=== PATIENT | female | born 1945 | race Caucasian/White ===

== ENCOUNTER 2017-03-15 08:30 | Outpatient (CLI) | payer MEDICARE, BC | END 2017-03-15 08:31 | disposition home or self-care (01) | DRG 552 | LOC: CONVCARE 08:30 | PROVIDERS: ATTEND Orthopaedic Surgery | DX: M48.06 Spinal stenosis, lumbar region (principal); M48.07 Spinal stenosis, lumbosacral region | CPT/HCPCS: 72120; 73502 ==

== ENCOUNTER 2017-04-02 10:39 | Day surgery (SDC) | payer MEDICARE, BC ==
[2017-04-02 11:11] VITALS: RESP 16
[2017-04-02] MEDS ORDERED: DEXAMETHASONE SOD PHOS PF 10 MG/ML SOL IJ ONE (11:37)
[2017-04-02] MEDS ORDERED: LIDOCAINE HCL 1% MPF SOL ONE (11:44)
[2017-04-02 12:25] VITALS: PULSE 70; TEMP 98.2; O2SAT 97
[2017-04-02 12:34] VITALS: BP 175/90
== END 2017-04-02 12:40 | disposition home or self-care (01) | DRG 552 ==
LOC: SURG 10:39
PROVIDERS: ATTEND Nurse Anesthetist, Certified Registered
DX: M48.06 Spinal stenosis, lumbar region (principal)
CPT/HCPCS: J1100; J2001

== ENCOUNTER 2017-04-30 06:44 | Day surgery (SDC) | payer MEDICARE, BC ==
[2017-04-30] MEDS ORDERED: ACETAMINOPHEN 325 MG ONE (06:48)
[2017-04-30] MEDS ORDERED: LIDOCAINE HCL 1% MPF SOL ONE (07:04)
[2017-04-30] MEDS ORDERED: POVIDONE IODINE 5% SOL ONE (07:04)
[2017-04-30] MEDS ORDERED: TRYPAN BLUE 0.5 ML SOL IO ONE (07:04)
[2017-04-30] MEDS ORDERED: BSS W/ 0.25MG P.F. EPI 1 BOTTLE ONE (07:04)
[2017-04-30 07:06] VITALS: RESP 18
[2017-04-30] MEDS: PROPARACAINE HCL 0.5% OPHTHALMIC SOL ONE ×3 (07:21→08:34)
[2017-04-30] MEDS: CYCLOPENTOLATE 1% SOL ONE ×2 (07:21→07:33)
[2017-04-30] MEDS: PHENYLEPHRINE HCL 10% OPHTHAL SOL ONE ×2 (07:21→07:33)
[2017-04-30] MEDS ORDERED: ACETAZOLAMIDE 500 MG CER ONE (07:41)
[2017-04-30] MEDS ORDERED: MIDAZOLAM 2 MG/2 ML SOL ONE (07:42)
[2017-04-30] MEDS ORDERED: FENTANYL 100MCG/2ML SOL ONE (09:05)
[2017-04-30 09:35] VITALS: BP 150/92; PULSE 77; TEMP 96.7; O2SAT 99
== END 2017-04-30 09:48 | disposition home or self-care (01) | DRG 125 ==
LOC: SURG 06:44
PROVIDERS: ATTEND Ophthalmology
DX: H25.9 Unspecified age-related cataract (principal); H21.81 Floppy iris syndrome
CPT/HCPCS: J2250; J3010; J2001

== ENCOUNTER 2017-07-08 07:13 | Emergency (ER) | payer MEDICARE, BC ==
[2017-07-08] MEDS ORDERED: ALUMINUM/MAGNESIUM 30 ML SUS PO ONE (07:20)
[2017-07-08] MEDS ORDERED: LIDOCAINE HCL 2% (VISCOUS) 20 ML SOL MT ONE (07:20)
[2017-07-08] MEDS ORDERED: LIDOCAINE HCL 2% (VISCOUS) 20 ML SOL ONE (07:29)
[2017-07-08] MEDS ORDERED: ALUMINUM/MAGNESIUM 30 ML SUS ONE (07:29)
[2017-07-08 07:51] VITALS: RESP 20
[2017-07-08 09:09] VITALS: BP 149/79; PULSE 67; TEMP 97.4; O2SAT 97
== END 2017-07-08 09:40 | disposition home or self-care (01) | DRG 392 ==
LOC: ED 07:13
DX: K21.9 Gastro-esophageal reflux disease without esophagitis (principal); K80.50 Calculus of bile duct without cholangitis or cholecystitis without obstruction
CPT/HCPCS: 99283

== ENCOUNTER 2017-07-18 04:15 | Emergency (ER) | payer MEDICARE, BC ==
[2017-07-18] MEDS ORDERED: HYDROMORPHONE 1 MG/ML SYRINGE IV ONE ×3 (04:24→07:35)
[2017-07-18] MEDS ORDERED: ONDANSETRON HCL 4 MG/2 ML SOL IV ONE (04:25)
[2017-07-18] MEDS ORDERED: SODIUM CHLORIDE 0.9% 1000 ML SOL IV ONE (04:26)
[2017-07-18] MEDS ORDERED: ONDANSETRON HCL 4 MG/2 ML SOL ONE (04:29)
[2017-07-18] MEDS ORDERED: HYDROMORPHONE 1 MG/ML SYRINGE ONE ×3 (04:29→07:35)
[2017-07-18 04:55] LABS: HEMATOCRIT 40 % (35-47); MEAN CORPUSCULAR HGB CONC 34.3 gm/dl (32.0-36.0); MEAN CORPUSCULAR VOLUME 92 fL (81-99)
[2017-07-18 05:05] LABS: ALBUMIN 3.2 gm/dl (3.4-5.0); CALCIUM 8.3 mg/dl (8.5-10.1); POTASSIUM 4.2 mMol/L (3.5-5.1)
[2017-07-18] MEDS ORDERED: ALUMINUM/MAGNESIUM 30 ML SUS PO ONE (05:09)
[2017-07-18] MEDS ORDERED: LIDOCAINE HCL 2% (VISCOUS) 20 ML SOL MT ONE (05:09)
[2017-07-18] MEDS ORDERED: ALUMINUM/MAGNESIUM 30 ML SUS ONE (05:10)
[2017-07-18] MEDS ORDERED: LIDOCAINE HCL 2% (VISCOUS) 20 ML SOL ONE (05:10)
[2017-07-18 05:19] LABS: BASOPHILS % (MANUAL) 0 % (0-3); EOSINOPHILS % (MANUAL) 2 % (0-9); LYMPHOCYTES % (MANUAL) 10 % (10-50); NORMAL RBCS PRESENT
[2017-07-18 07:08] LABS: APPEARANCE,URINE Clear; BILIRUBIN,URINE 1+ (NEGATIVE); COLOR,URINE Yellow; GLUCOSE, URINE (UA) NEGATIVE (NEGATIVE); KETONES,URINE NEGATIVE (NEGATIVE); LEUKOCYTE ESTERASE ,URINE NEGATIVE (NEGATIVE); NITRATE,URINE NEGATIVE (NEGATIVE); OCCULT BLOOD,URINE NEGATIVE (NEG-TRACE); UROBILINOGEN,URINE 0.2 (0.2-1.0 EU)
[2017-07-18 07:25] LABS: ICTOTEST,URINE POSITIVE (NEGATIVE); RBC,URINE 0-2 (0-3AV/HPF); WBC,URINE 0-2 (0-5AV/HPF)
[2017-07-18 07:54] VITALS: BP 112/58; PULSE 115; RESP 16; TEMP 100.1; O2SAT 98
== END 2017-07-18 07:47 | disposition short-term general hospital (02) | DRG 446 ==
LOC: ED 04:15
DX: K80.42 Calculus of bile duct with acute cholecystitis without obstruction (principal); R10.11 Right upper quadrant pain
CPT/HCPCS: 36415; 74177; 80053; 81001; 85007; 85027; 85610; 99285; J2405; Q9967; J1170

== ENCOUNTER 2017-08-26 23:28 | Observation (INO) | payer MEDICARE, BC ==
[2017-08-26] MEDS ORDERED: DILTIAZEM 5 MG/ML SOL IV ONE ×2 (23:49→23:52)
[2017-08-26] MEDS: SODIUM CHLORIDE 0.9% FLUSH 10 ML SOL IV PRN (23:57)
[2017-08-27 00:07] LABS: BASOPHILS % (AUTO) 2 % (0-3); EOSINOPHILS % (AUTO) 7 % (0-9); HEMATOCRIT 40 % (35-47); MEAN CORPUSCULAR HGB CONC 35.4 gm/dl (32.0-36.0); MEAN CORPUSCULAR VOLUME 90 fL (81-99); MONOCYTES % (AUTO) 10.3 % (0-12)
[2017-08-27 00:17] LABS: GLOM FILT RATE 62 mL/min (>60); SODIUM 141 mMol/L (136-145)
[2017-08-27] MEDS ORDERED: ALBUTEROL HFA 60 PUFF/INHALER INH PRN (01:04)
[2017-08-27] MEDS ORDERED: DILTIAZEM HYDROCHLORIDE 60 MG TAB PO ONE (01:25)
[2017-08-27] MEDS ORDERED: DILTIAZEM ER 120 MG C24 PO ONE (02:13)
[2017-08-27] MEDS ORDERED: DILTIAZEM HYDROCHLORIDE 60 MG TAB PO SCH (07:00)
[2017-08-27] MEDS ORDERED: D3 PO SCH (09:00)
[2017-08-27] MEDS ORDERED: [UNRECOGNIZED DRUG - OTHER] PO SCH (09:00)
[2017-08-27] MEDS ORDERED: VIT K1 PO SCH (09:00)
[2017-08-27] MEDS ORDERED: OMEPRAZOLE 20 MG CAPSULE PO SCH (09:00)
[2017-08-27] MEDS ORDERED: VITAMIN E PO SCH (09:00)
[2017-08-27] MEDS ORDERED: CYANOCOBALAMIN PO SCH (09:00)
[2017-08-27] MEDS ORDERED: VITAMIN D3 PO SCH (09:00)
[2017-08-27] MEDS ORDERED: [UNRECOGNIZED DRUG - OTHER] PO SCH (09:00)
[2017-08-27] MEDS ORDERED: CALCIUM CARB PO SCH (09:00)
[2017-08-27] MEDS ORDERED: GLUCOSAMINE PO SCH (09:00)
[2017-08-27] MEDS ORDERED: VITAMIN B COMPLEX VIT C NO 4 PO SCH (09:00)
[2017-08-27] MEDS ORDERED: BOSWELLIA SERRA PO SCH (09:00)
[2017-08-27] MEDS ORDERED: [UNRECOGNIZED DRUG - OTHER] PO SCH (09:00)
[2017-08-27] MEDS ORDERED: ASCORBIC ACID 500 MG TAB PO SCH (09:00)
[2017-08-27] MEDS: PANTOPRAZOLE SODIUM 40 MG ECT PO SCH ×2 (10:26→20:49)
[2017-08-27] MEDS: ACETAMINOPHEN 325 MG PO SCH ×2 (10:27→20:50)
[2017-08-27] MEDS: DICLOFENAC SODIUM 100 MG PO SCH (13:14)
[2017-08-27] MEDS ORDERED: CARBIDOPA PO SCH (21:00)
[2017-08-27] MEDS ORDERED: LEVODOPA PO SCH (21:00)
[2017-08-27] MEDS ORDERED: POTASSIUM PO SCH (21:00)
[2017-08-27] MEDS ORDERED: EVENING PRIMROSE OIL PO SCH (21:00)
[2017-08-27] MEDS ORDERED: ENTACAPONE PO SCH (21:00)
[2017-08-27] MEDS ORDERED: MAGNESIUM OXIDE 400 MG TAB PO SCH (21:00)
[2017-08-27] MEDS ORDERED: LUTEIN 20 MG PO SCH (21:00)
[2017-08-27] MEDS ORDERED: [UNRECOGNIZED DRUG - OTHER] PO SCH (21:00)
[2017-08-27] MEDS ORDERED: PRAVASTATIN SODIUM 20 MG TAB PO SCH (21:00)
[2017-08-28] MEDS: SODIUM CHLORIDE 0.9% FLUSH 10 ML SOL IV PRN (00:45)
[2017-08-28 08:09] VITALS: BP 153/97; PULSE 82; RESP 16; TEMP 97.8; O2SAT 95
[2017-08-28] MEDS: PANTOPRAZOLE SODIUM 40 MG ECT PO SCH (09:40)
[2017-08-28] MEDS: ACETAMINOPHEN 325 MG PO SCH (09:40)
[2017-08-28] MEDS: DICLOFENAC SODIUM 100 MG PO SCH (09:40)
== END 2017-08-28 11:30 | disposition home or self-care (01) | DRG 310 ==
LOC: ED 23:28 → ACUTE CARE 08-27 00:52
PROVIDERS: ADMIT Family Medicine; ATTEND Family Medicine
DX: I47.1 Supraventricular tachycardia (principal)
CPT/HCPCS: 36415; 71010; 80048; 82550; 83880; 84484; 85025; 85378; 85610; 85730; 93005; 93012; 94760; 99285

== ENCOUNTER 2018-02-26 13:33 | Day surgery (SDC) | payer MEDICARE, BC ==
[2018-02-26] MEDS ORDERED: BUPIVACAINE HCL 0.25% MPF 10 ML SOL INFIL ONE (14:09)
[2018-02-26] MEDS ORDERED: DEXAMETHASONE SOD PHOS PF 10 MG/ML SOL IJ ONE (14:09)
[2018-02-26 14:34] VITALS: BP 154/80; PULSE 74; RESP 18; TEMP 97.4; O2SAT 96
== END 2018-02-26 14:58 | disposition home or self-care (01) | DRG 552 ==
LOC: SURG 13:33
PROVIDERS: ATTEND Nurse Anesthetist, Certified Registered
DX: M48.062 Spinal stenosis, lumbar region with neurogenic claudication (principal)
CPT/HCPCS: J1100

== ENCOUNTER 2019-06-16 08:56 | Emergency (ER) | payer MEDICARE, BC ==
[2019-06-16 09:03] VITALS: RESP 16; TEMP 97.6
[2019-06-16 09:16] VITALS: O2SAT 98
[2019-06-16 09:58] VITALS: BP 138/76; PULSE 74
== END 2019-06-16 11:10 | disposition home or self-care (01) | DRG 123 ==
LOC: ED 08:56
DX: H53.2 Diplopia (principal); R51 Headache; Z86.73 Personal history of transient ischemic attack (TIA), and cerebral infarction without residual deficits
CPT/HCPCS: 70450; 99283